=== PATIENT | female | born 1990 | race Caucasian/White ===

== ENCOUNTER 2018-03-23 08:54 | Emergency (ER) | payer OTHER ==
[~2018-03-23] VITALS: Ht 157.5 cm; Wt 53.8 kg
[2018-03-23 08:58] VITALS: BP 128/77; PULSE 96; RESP 16; TEMP 97.8; O2SAT 99
[2018-03-23] MEDS ORDERED: PREN29TA PO (09:12)
--- NOTE | 2018-03-23 09:45 | PD ---
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 Patient is 12 and a [age] week . Patient has been seen by her OB physician. Patient started having vaginal spotting and vaginal discharge and was seen by her OB physician 2 days ago. Patient was diagnosed with yeast infection and advised to use Monistat cream vaginally. Patient states that she has increasing vaginal spotting this morning and increasing pelvic cramping this morning. Patient denies any headache. Patient denies any chest pain or shortness of breath. Patient denies abdominal pain. Patient denies any back pain. Patient denies any fever chills. Patient denies any dysuria frequency. Patient blood type O+. PFSH Past Medical History Tetanus Vaccination: Unknown Influenza Vaccination: No ?: LMP: dec 10 : 1 Para: 0 Past Surgical History Surgical History: No Previous Surgery Oral Surgery: Yes (wisdom teeth) Other Surgery: Yes (bone marrow donation) Social History Alcohol Use: No Tobacco Use: No Allergies-Medications (Allergen,Severity, Reaction): Coded Allergies: No Known Allergies (Unverified , 03/23/18) Reported Meds & Prescriptions Reported Meds & Active Scripts Active Reported Plus Iron 29-1 mg ( Vit-Iron Carbonyl) 29 Mg Iron-1 Mg Tab 1 Tab PO DAILY Review of Systems General / Constitutional: No: Fever Eyes: No: Visual changes HENT: No: Headaches Cardiovascular: No: Chest Pain or Discomfort Respiratory: No: Shortness of Breath Gastrointestinal: No: Abdominal Pain Genitourinary: Positive: Pelvic Pain, Vaginal Bleeding, No: Dysuria Musculoskeletal: No: Pain Skin: No Rash Neurologic: No: Weakness Psychiatric: No: Depression Endocrine: No: Polydipsia Hematologic/Lymphatic: No: Easy Bruising Physical Exam Narrative GENERAL: Well-nourished, well-developed patient. SKIN: Focused skin assessment warm/dry. HEAD: Normocephalic. EYES: No scleral icterus. No injection or drainage. NECK: Supple, trachea midline. No JVD or lymphadenopathy. CARDIOVASCULAR: Regular rate and rhythm without murmurs, gallops, or rubs. RESPIRATORY: Breath sounds equal bilaterally. No accessory muscle use. GASTROINTESTINAL: Abdomen soft, non-tender, nondistended. MUSCULOSKELETAL: No cyanosis, or edema. BACK: Nontender without obvious deformity. No CVA tenderness. EFFICIENCY MANAGER exam: Patient has small amount of light brown discharge in vaginal vault. The cervix is long thick and closed. Uterus is enlarged and nontender on palpation. No adnexal mass or tenderness. Data Data Last Documented VS Vital Signs Date Time Temp Pulse Resp B/P (MAP) Pulse Ox O2 Delivery O2 Flow Rate FiO2 03/23/18 08:58 97.8 96 16 128/77 (94) 99 MDM Medical Decision Making Medical Screen Exam Complete: Yes Emergency Medical Condition: Yes Differential Diagnosis Differential diagnoses including Pamela vaginitis, cervicitis, threatened AB, incomplete AB, complete AB, ectopic . Narrative Course 27-year-old female, 14-1/2 week , with vaginal spotting and pelvic cramping. Patient on treatment for yeast infection with Monistat cream. I spoke with the OB. Advised to stop on a statin follow-up with her physician in 2 days. Advised patient return immediately if increase of abdominal pain, pelvic pain, vaginal bleeding. Procedures Procedure Narrative Emergency Department Pelvic ultrasound was performed with patient consent. The curvilinear probe was used in the transverse and sagittal views within the suprapubic region revealing intrauterine . heart rate was 146. Fetus active. Diagnosis Primary Impression: Bleeding in early Patient Instructions: General Instructions Additional Instructions: Advised patient to stop Monistat. Follow-up with personal physician in 2 days. Return immediately if increasing pelvic pain, vaginal bleeding. Off work this weekend. Med/Other Pt SpecificInfo: Med Stopped Disposition: DISCHARGE HOME Condition: Stable Royal Wisdom MD March 23, 2018 09:45
== END 2018-03-23 10:00 | disposition home or self-care (01) ==
LOC: PHED 08:54
DX: O20.9 Hemorrhage in early pregnancy, unspecified (principal); O98.811 Other maternal infectious and parasitic diseases complicating pregnancy, first trimester; B37.3 Candidiasis of vulva and vagina; Z3A.14 14 weeks gestation of pregnancy
CPT/HCPCS: 99284